=== PATIENT | male | born 1985 | race Caucasian/White ===

== ENCOUNTER 2016-09-22 13:39 | Observation (INO) | payer OTHER ==
[~2016-09-22] VITALS: Ht 175.3 cm; Wt 99.8 kg
--- NOTE | 2016-09-22 13:57 | NUR ---
PT STATES THAT HE WAS SEEN AT [place] THE PAST 2 DAYS, WAS DIAGNOSED WITH KIDNEY STONES LARGEST BEING 7.5 MM STATES THAT THEY DID NOT HAVE HIM SEEING A UROLOGIST SO HE SIGNED OUT. PT COMES IN WITH L SIDE FLANK PAIN 05/31
--- NOTE | 2016-09-22 14:19 | ED GI/GU/ABDOMINAL COMPLAINT ---
History of Present Illness General Chief Complaint: Abdominal Pain/Flank Pain Stated Complaint: L FLANK PAIN HX OF KIDNEY STONES Source: patient Exam Limitations: no limitations Vital Signs & Intake/Output Vital Signs & Intake/Output Vital Signs Date Time Temp Pulse Resp B/P Pulse O2 O2 Flow FiO2 Ox Delivery Rate 09/23 1545 97.8 68 18 120/80 97 Nasal 3.0L Cannula 09/23 0726 97.5 73 18 130/88 97 Room Air 09/23 0019 98.3 81 19 122/86 96 Room Air ED Intake and Output 09/23 0000 09/22 1200 Intake Total 1825 Output Total 300 Balance 1525 Intake, IV 1325 Intake, Oral 500 Output, Urine 300 Patient 221 lb Weight Allergies Coded Allergies: Penicillins (Severe, ANAPHYLAXIS 09/22/16) Reconcile Medications Alprazolam (Xanax) 0.25 MG TABLET 0.25 MG PO TID PRN ANXIETY Ciprofloxacin HCl (Cipro) 500 MG TABLET 500 MG PO BID ANTIBIOTIC, INFECTION Oxycodone HCl/Acetaminophen (Percocet 5-325 MG Tablet) 5 MG-325 MG TABLET 2 TAB PO Q4P PRN ABDOMINAL PAIN Triage Note: PT STATES THAT HE WAS SEEN AT [place] THE PAST 2 DAYS, WAS DIAGNOSED WITH KIDNEY STONES LARGEST BEING 7.5 MM STATES THAT THEY DID NOT HAVE HIM SEEING A UROLOGIST SO HE SIGNED OUT. PT COMES IN WITH L SIDE FLANK PAIN 05/31 Triage Nurses Notes Reviewed? yes HPI: This patient is a 31-year-old male who presented to the emergency department today for evaluation of left flank pain radiating to his left groin. The patient reported that his symptoms began on Tuesday. He reported that he went to [facility] that day where he was diagnosed with 3 left-sided kidney stones , largest 7.5 mm. The patient reported that he was discharged with hydromorphone. This medication did not relieve his symptoms. He reported that he went back to the emergency department and was admitted to the hospital. However, he reported that he was therefore almost 20 hours, did not see a urologist, and did not receive any information about what was going to happen. He was unsatisfied with his care, so he discharged himself. The patient reported that today he got a call saying that he was scheduled for a procedure, lithotripsy. He reported that he was never told about this procedure. The patient came here for further care. He reported that he is having 10 out of 10 pain in his left flank which radiates to his left groin. He reported that yesterday he was having some urinary bleeding, but not currently. He reported burning with urination. No urinary urgency or frequency. The patient reported some nausea with vomiting, many times, yesterday. The patient denied any fevers , chills, abdominal pain, chest pain, difficulty breathing, or any other associated symptoms. (MASHA POLLARD PA-C) Past History Travel History Traveled to [place] past 21 day No Medical History Any Pertinent Medical History? see below for history Neurological: NONE EENT: NONE Cardiovascular: NONE Respiratory: NONE Gastrointestinal: NONE Hepatic: NONE Renal: nephrolithiasis Musculoskeletal: NONE Psychiatric: NONE Endocrine: NONE Blood Disorders: NONE Cancer(s): NONE SWITCHBOARD AND CONTROL ROOM OPERATOR/Reproductive: NONE Surgical History Surgical History: non-contributory Psychosocial History What is your primary language Yakut Tobacco Use: Never used ETOH Use: denies use Illicit Drug Use: denies illicit drug use Family History Hx Contributory? No (MASHA POLLARD PA-C) Review of Systems Review of Systems Constitutional: Reports: no symptoms. EENTM: Reports: no symptoms. Respiratory: Reports: no symptoms. Cardiovascular: Reports: no symptoms. GI: Reports: see HPI. Genitourinary: Reports: see HPI. Musculoskeletal: Reports: no symptoms. Skin: Reports: no symptoms. Neurological/Psychological: Reports: no symptoms. All Other Systems: Reviewed and Negative (MASHA POLLARD PA-C) Physical Exam Physical Exam Gastrointestinal: normal bowel sounds, soft, non-tender, no organomegaly, NO REBOUND OR GUARDING. nO PERITONEAL SIGNS. nONDISTENDED Comments: Well-developed well-nourished person in no acute distress HEENT: Normal EENT exam, head normocephalic, moist mucous membranes Neck: Supple. No lymphadenopathy Back: Normal gait. Normal inspection with no bony or muscular deformities. No midline tenderness. No right-sided CVA tenderness. Positive left-sided CVA tenderness Cardiovascular: Regular rate and rhythm with no murmurs, rubs, or gallops Respiratory: Chest nontender. No respiratory distress. Breath sounds clear to auscultation bilaterally Extremity: Normal and equal pulses. Neuro: Alert oriented x3, cranial nerves II through XII grossly intact. Skin: No appreciable rash on exposed skin, skin is warm and dry. Psych: Mood and affect is normal Core Measures ACS in differential dx? No Severe Sepsis Present: No Septic Shock Present: No (LATRICE PAULINO,MASHA) Progress Differential Diagnosis: AMI, appendicitis, biliary colic, bowel obstruction, colon cancer, cholecystitis, diverticulitis, epididymitis, gastritis, hepatitis, ischemic bowel, inflamm bowel dis, pancreatitis, prostatitis, PUD/GERD, perforated viscous, pyelonephritis, STD, testicular torsion, ureterolithiasis, urinary retention, urethritis, UTI/pyelo Plan of Care: Orders Procedure Date/time Status Regular Diet 09/23 D Complete Discharge Patient 09/23 UNK Active VTE Mechanical Prophylaxis 09/23 UNK Active Current Medications Sig/Chaka Start time Last Medication Dose Stop Time Status Admin Al Hydroxide/Mg 30 ML Q6P PRN 09/22 1814 CAN Hydroxide (Maalox Plus) Diagnostic Imaging: Viewed by Me: CT Scan. Discussed w/RAD: CT Scan. Radiology Impression: PATIENT: PARIS WILCOX PRESENT AGE: 31 PATIENT ACCOUNT NO: [id number] : 84 LOCATION: [facility] ORDERING PHYSICIAN: MASHA POLLARD PA-C SERVICE DATE: 09/22/16 EXAM TYPE: CAT - CT ABD & PELVIS W/O IV CONTRAS EXAMINATION: CT ABDOMEN AND PELVIS WITHOUT CONTRAST CLINICAL INFORMATION: Kidney stones. Left flank pain. COMPARISON: No relevant prior imaging available. TECHNIQUE: Multidetector volumetric imaging was performed from the superior aspect of the liver through the pubic symphysis. Sagittal and coronal reformatted images were obtained on the technologist's workstation. DLP: 583.64 mGy-cm. FINDINGS: LUNG BASES: Lung bases are clear. There is no pleural or pericardial effusion. LIVER, GALLBLADDER, AND BILIARY TREE: The liver is normal in size, shape, and attenuation. No focal hepatic lesion or biliary ductal dilatation is present. The gallbladder is unremarkable with no evidence of radiopaque gallstones, gallbladder wall thickening, or obvious pericholecystic inflammatory changes. PANCREAS: Unremarkable. SPLEEN: Unremarkable. ADRENAL GLANDS: Unremarkable. KIDNEYS AND URETERS: There is a 7 mm obstructing calculus located at the left ureteropelvic junction and there is corresponding left hydronephrosis. There are additional 6 mm and 3 mm nonobstructive calculi within the calyces of the left kidney. The remainder of the visualized left ureter is normal. The right kidney kidney and ureter are normal. BLADDER: Unremarkable. GASTROINTESTINAL TRACT: The stomach and small bowel are normal. The colon and appendix are normal. ABDOMINAL WALL: There is a tiny fat-containing umbilical hernia. Abdominal wall is otherwise unremarkable. LYMPH NODES: There are no pathologically enlarged mesenteric or retroperitoneal lymph nodes. VASCULAR: The unenhanced abdominal aorta and inferior vena cava are normal. PELVIC VISCERA: Unremarkable. OSSEOUS STRUCTURES: Unremarkable. IMPRESSION: There is a 7 mm obstructing calculus located at the left ureteropelvic junction and 2 additional nonobstructing calculi within the calyces of left kidney. The right kidney and ureter are normal. DICTATED BY: MALCOLM QUINN MD DATE/TIME DICTATED:09/22/161522 DIPLOMATIC INTERPRETER/TRANSLATOR: HELEN DATE/TIME TRANSCRIBED:09/22/161522 CONFIDENTIAL, DO NOT COPY WITHOUT APPROPRIATE AUTHORIZATION. <Electronically signed in Other Vendor System> SIGNED BY: MALCOLM QUINN MD 09/22/16 1548 Initial ED EKG: none Comments: 09/22/2016 4:22:36 PM: I discussed this patient with on-call urologist, Dr. Rios. He reported that he will be in to the hospital to evaluate this patient [id number] in the next hour. The patient reported that his pain is, "better. " He is denying any current nausea. 09/22/2016 5:36:58 PM: Dr. Rios is currently at the patient's bedside for face- to-face evaluation. (LATRICE PAULINO,MASHA) Departure Departure Disposition: STILL A PATIENT Condition: Stable Clinical Impression Primary Impression: Ureterolithiasis Referrals: PATIENT HAS NO PRIMARY CARE DR (PCP/Family) Departure Forms: Customer Survey General Discharge Information Prescriptions: Current Visit Scripts Ciprofloxacin HCl (Cipro) 500 MG PO BID #15 Oxycodone HCl/Acetaminophen (Percocet 5-325 MG Tablet) 2 TAB PO Q4P PRN ABDOMINAL PAIN #30 Alprazolam (Xanax) 0.25 MG PO TID PRN ANXIETY #30 Observation Note Spoke With: PUJA RIOS MD Physician Advisor Notified: KRISTIAN VARGAS DO Place Patient In: Non-ED OBS Care Area Rationale for Observation: My rational for observation is as follows [this patient is a 31-year-old male who presented to the emergency department today for evaluation of worsening pain after diagnosis of left sided ureterolithiasis. This patient will be 23 hour observation for stent placement in the morning. He will receive IV pain management, IV antiemetics, he will be NPO after midnight. Premature discharge could prove medically harmful.]. (LATRICE PAULINO,MASHA) PA/HEALTH PROMOTION OFFICER Co-Sign Statement Statement: ED Attending supervision documentation- [] I saw and evaluated the patient. I have also reviewed all the pertinent lab results and diagnostic results. I agree with the findings and the plan of care as documented in the PA's/HEALTH PROMOTION OFFICER's documentation. [X] I have reviewed the ED Record and agree with the PA's/HEALTH PROMOTION OFFICER's documentation. [] Additions or exceptions (if any) to the PAs/HEALTH PROMOTION OFFICER's note and plan are summarized below: [] (MERARY JACOME,ANDERSON)
[2016-09-22] MEDS ORDERED: HYDROMORPHONE HC2 M1 PO (14:23)
--- NOTE | 2016-09-22 14:27 | NUR ---
PT TO ROOM 18 IN W/C, SEEN BY PA, BLOOD SENT (MARIO/SHANAE/JEROMY), PT UNABLE TO VOID AT THIS TIME AND HAS URINE CUP. IV EST AND PT MEDICATED PER EMAR.
[2016-09-22 14:35] LABS: ABSOLUTE BASOPHIL COUNT 0.1 /CUMM (0.0-0.2); ABSOLUTE EOSINOPHIL COUNT 0.2 /CUMM (0.0-0.7); ABSOLUTE GRANULOCYTE CT 9.6 /CUMM (1.4-6.5); ABSOLUTE LYMPH COUNT 1.9 /CUMM (1.2-3.4); BASOPHIL % 0.8 % (0.0-2.0); EOSINOPHIL % 1.5 % (0-5); HEMATOCRIT 43.7 % (42-52); MEAN CORPUSCULAR HGB 29.2 PG (27.0-31.0); MEAN CORPUSCULAR HGB CONC 34.5 G/DL (33.0-37.0); MEAN CORPUSCULAR VOLUME 84.7 FL (80.0-94.0); MEAN PLATELET VOLUME 8.9 FL (7.4-10.4); PLATELET COUNT 233 /CUMM (130-400); RBC DISTRIBUTION WIDTH 13.1 % (11.5-14.5); RED BLOOD CELL CT 5.17 /CUMM (4.70-6.10); WHITE BLOOD CELL COUNT 12.8 /CUMM (4.8-10.8)
--- NOTE | 2016-09-22 14:46 | NUR ---
ANKIT POLLARD AT BEDSIDE FOR EVAL
--- NOTE | 2016-09-22 15:02 | NUR ---
MEDICATED WITH MORPHINE, PT REPORTS TORADOL WORKED BUT "PAIN IS STILL THERE," NOW 12/29 FROM 05/31, AWAITING CT SCAN.
--- NOTE | 2016-09-22 15:15 | NUR ---
AMBULATORY TO/FROM CT
--- NOTE | 2016-09-22 15:47 | NUR ---
URINE SPECIMEN OBTAINED AND TRIO SENT TO LAB
--- NOTE | 2016-09-22 15:48 | CT SCAN REPORT ---
EXAMINATION: CT ABDOMEN AND PELVIS WITHOUT CONTRAST CLINICAL INFORMATION: Kidney stones. Left flank pain. COMPARISON: No relevant prior imaging available. TECHNIQUE: Multidetector volumetric imaging was performed from the superior aspect of the liver through the pubic symphysis. Sagittal and coronal reformatted images were obtained on the technologist's workstation. DLP: 583.64 mGy-cm. FINDINGS: LUNG BASES: Lung bases are clear. There is no pleural or pericardial effusion. LIVER, GALLBLADDER, AND BILIARY TREE: The liver is normal in size, shape, and attenuation. No focal hepatic lesion or biliary ductal dilatation is present. The gallbladder is unremarkable with no evidence of radiopaque gallstones, gallbladder wall thickening, or obvious pericholecystic inflammatory changes. PANCREAS: Unremarkable. SPLEEN: Unremarkable. ADRENAL GLANDS: Unremarkable. KIDNEYS AND URETERS: There is a 7 mm obstructing calculus located at the left ureteropelvic junction and there is corresponding left hydronephrosis. There are additional 6 mm and 3 mm nonobstructive calculi within the calyces of the left kidney. The remainder of the visualized left ureter is normal. The right kidney kidney and ureter are normal. BLADDER: Unremarkable. GASTROINTESTINAL TRACT: The stomach and small bowel are normal. The colon and appendix are normal. ABDOMINAL WALL: There is a tiny fat-containing umbilical hernia. Abdominal wall is otherwise unremarkable. LYMPH NODES: There are no pathologically enlarged mesenteric or retroperitoneal lymph nodes. VASCULAR: The unenhanced abdominal aorta and inferior vena cava are normal. PELVIC VISCERA: Unremarkable. OSSEOUS STRUCTURES: Unremarkable. IMPRESSION: There is a 7 mm obstructing calculus located at the left ureteropelvic junction and 2 additional nonobstructing calculi within the calyces of left kidney. The right kidney and ureter are normal.
--- NOTE | 2016-09-22 17:27 | NUR ---
MD RODGERS AT [facility] TO EDDIE PT
--- NOTE | 2016-09-22 18:00 | Cons- Urology ---
General Information and HPI Consulting Request Date of Consult: 09/22/16 Requested By: md rodríguez, chace:ER Reason for Consult: left hydro: acute renal failure. sepsis Source of Information: patient Exam Limitations: no limitations History of Present Illness: 31 yr old with hx stones. recently, seen in [place] with severe pain then discharged. Returns to [place] ER with pain, n/v. fever. Allergies/Medications Allergies: Coded Allergies: Penicillins (Severe, ANAPHYLAXIS 09/22/16) Home Med List: Hydromorphone HCl 2 MG TABLET 1 TAB PO Q4-6 PRN PRN PAIN (Reported) Current Medications: Current Medications Sig/Chaka Start time Last Medication Dose Route Stop Time Status Admin Ketorolac 30 MG ONCE ONE 09/22 1415 DC 09/22 Tromethamine IV 09/22 1416 1420 Ketorolac 0 .STK-MED ONE 09/22 1410 DC Tromethamine .ROUTE Morphine Sulfate 2 MG ONCE ONE 09/22 1500 DC / IV 09/22 1501 1502 Morphine Sulfate 0 .STK-MED ONE 09/22 1458 DC .ROUTE Ondansetron HCl 0 .STK-MED ONE 09/22 1425 DC .ROUTE Ondansetron HCl 4 MG ONCE ONE 09/22 1415 DC / IV 02 1416 1425 Sodium Chloride 1,000 ML BOLUS ONE 09/22 1415 DC 02/ IV 02/ 1514 1420 Past History Medical History Neurological: NONE EENT: NONE Cardiovascular: NONE Respiratory: NONE Gastrointestinal: NONE Hepatic: NONE Renal: nephrolithiasis Musculoskeletal: NONE Psychiatric: NONE Endocrine: NONE Blood Disorders: NONE Cancer(s): NONE RISK SPECIALIST/Reproductive: NONE Surgical History Pertinent Surgical History: non-contributory Psychosocial History ETOH Use: denies use Illicit Drug Use: denies illicit drug use 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 EENTM: Denies: no symptoms. Cardiovascular: Denies: no symptoms. Respiratory: Denies: no symptoms. GI: Reports: abdominal pain, bloating. Genitourinary: Denies: no symptoms. Musculoskeletal: Denies: no symptoms. Exam & Diagnostic Data Vital Signs and I&O Vital Signs Date Time Temp Pulse Resp B/P Pulse O2 O2 Flow FiO2 Ox Delivery Rate 09/22 1606 96.4 90 18 127/72 93 Room Air 09/22 1354 98.2 98 18 161/100 98 Room Air Intake & Output 09/22 1600 09/22 0800 09/22 0000 09/21 1600 09/21 0800 09/21 0000 Intake Total 1100 Output Total Balance 1100 Intake, IV 1100 Patient 221 lb Weight Physical Exam General Appearance: well developed/nourished, alert, awake, anxious, mild distress Head: atraumatic Eyes: Bilateral: normal appearance. Neck: normal inspection Respiratory: normal breath sounds Cardiovascular: regular rate/rhythm Gastrointestinal: normal bowel sounds, soft Back: CVA tenderness (L) Extremities: normal inspection Last 24 Hours of Labs: Laboratory Tests 09/22 09/22 1544 1425 Chemistry Sodium (137 - 145 mmol/L) 140 Potassium (3.5 - 5.1 mmol/L) 3.9 Chloride (98 - 107 mmol/L) 103 Carbon Dioxide (22 - 30 mmol/L) 25 Anion Gap (5 - 16) 12 BUN (9 - 20 mg/dL) 15 Creatinine (0.7 - 1.2 mg/dL) 1.4 H Estimated GFR (>60 ml/min) 59 L BUN/Creatinine Ratio (7 - 25 %) 10.7 Glucose (65 - 99 mg/dL) 93 Calcium (8.4 - 10.2 mg/dL) 9.4 Total Bilirubin (0.2 - 1.3 mg/dL) 1.7 H AST (17 - 59 U/L) 27 ALT (21 - 72 U/L) 48 Alkaline Phosphatase (< 127 U/L) 73 Total Protein (6.3 - 8.2 g/dL) 7.4 Albumin (3.5 - 5.0 g/dL) 4.4 Globulin (1.9 - 4.2 gm/dL) 3.0 Albumin/Globulin Ratio (1.1 - 2.2 %) 1.5 Hematology CBC w Diff NO MAN DIFF REQ WBC (4.8 - 10.8 /CUMM) 12.8 H RBC (4.70 - 6.10 /CUMM) 5.17 Hgb (14.0 - 18.0 G/DL) 15.1 Hct (42 - 52 %) 43.7 MCV (80.0 - 94.0 FL) 84.7 MCH (27.0 - 31.0 PG) 29.2 RDW (11.5 - 14.5 %) 13.1 Plt Count (130 - 400 /CUMM) 233 MPV (7.4 - 10.4 FL) 8.9 Gran % (42.2 - 75.2 %) 75.0 Lymphocytes % (20.5 - 51.1 %) 14.7 L Monocytes % (1.7 - 9.3 %) 8.0 Eosinophils % (0 - 5 %) 1.5 Basophils % (0.0 - 2.0 %) 0.8 Absolute Granulocytes (1.4 - 6.5 /CUMM) 9.6 H Absolute Lymphocytes (1.2 - 3.4 /CUMM) 1.9 Absolute Monocytes (0.10 - 0.60 /CUMM) 1.0 H Absolute Eosinophils (0.0 - 0.7 /CUMM) 0.2 Absolute Basophils (0.0 - 0.2 /CUMM) 0.1 PUBS MCHC (33.0 - 37.0 G/DL) 34.5 Urines Urinalysis LIGHT H Urine Color (YEL,AMB,STR) STRAW Urine Clarity (CLEAR) CLEAR Urine pH (5.0 - 8.0) 6.0 Ur Specific [place] (1.001 - 1.035) <= 1.005 Urine Protein (NEG,<30 MG/DL) NEG Urine Ketones (NEG) NEG Urine Nitrite (NEG) NEG Urine Bilirubin (NEG) NEG Urine Urobilinogen (0.1 - 1.0 EU/dl) 0.2 Ur Leukocyte Esterase (NEG) NEG Ur Microscopic SEDIMENT EXAMINED Urine RBC (0 - 5 /HPF) 3-5 Urine WBC (0 - 2 /HPF) RARE Ur Epithelial Cells (NONE,FEW) FEW Urine Mucus (FEW,NONE) RARE Urine Hemoglobin (NEG) LARGE H Urine Glucose (N MG/DL) NEG Imaging Results: PATIENT: PARIS WILCOX PRESENT AGE: 31 PATIENT ACCOUNT NO: [id number] : 84 LOCATION: [facility] ORDERING PHYSICIAN: MASHA POLLARD PA-C SERVICE DATE: 09/22/168888 EXAM TYPE: CAT - CT ABD & PELVIS W/O IV CONTRAS EXAMINATION: CT ABDOMEN AND PELVIS WITHOUT CONTRAST CLINICAL INFORMATION: Kidney stones. Left flank pain. COMPARISON: No relevant prior imaging available. TECHNIQUE: Multidetector volumetric imaging was performed from the superior aspect of the liver through the pubic symphysis. Sagittal and coronal reformatted images were obtained on the technologist's workstation. DLP: 583.64 mGy-cm. FINDINGS: LUNG BASES: Lung bases are clear. There is no pleural or pericardial effusion. LIVER, GALLBLADDER, AND BILIARY TREE: The liver is normal in size, shape, and attenuation. No focal hepatic lesion or biliary ductal dilatation is present. The gallbladder is unremarkable with no evidence of radiopaque gallstones, gallbladder wall thickening, or obvious pericholecystic inflammatory changes. PANCREAS: Unremarkable. SPLEEN: Unremarkable. ADRENAL GLANDS: Unremarkable. KIDNEYS AND URETERS: There is a 7 mm obstructing calculus located at the left ureteropelvic junction and there is corresponding left hydronephrosis. There are additional 6 mm and 3 mm nonobstructive calculi within the calyces of the left kidney. The remainder of the visualized left ureter is normal. The right kidney kidney and ureter are normal. BLADDER: Unremarkable. GASTROINTESTINAL TRACT: The stomach and small bowel are normal. The colon and appendix are normal. ABDOMINAL WALL: There is a tiny fat-containing umbilical hernia. Abdominal wall is otherwise unremarkable. LYMPH NODES: There are no pathologically enlarged mesenteric or retroperitoneal lymph nodes. VASCULAR: The unenhanced abdominal aorta and inferior vena cava are normal. PELVIC VISCERA: Unremarkable. OSSEOUS STRUCTURES: Unremarkable. IMPRESSION: There is a 7 mm obstructing calculus located at the left ureteropelvic junction and 2 additional nonobstructing calculi within the calyces of left kidney. The right kidney and ureter are normal. Assessment/Plan Assessment/Plan left hydro due to obstructing ureter stone./requires stent and then ESWL. Copies To: PUJA RODGERS MD Consult Acknowledgment - Thank you for your consult request. Attending MD Review Statement Attending Statement Attending MD Statement: examined this patient Attending Assessment/Plan: left hydro due to stone; requires stent, then subsequent ESWL.
--- NOTE | 2016-09-22 18:55 | NUR ---
BED ASSIGNMENT 215-02
--- NOTE | 2016-09-22 18:58 | NUR ---
PT EATING DINNER. AWARE HE IS NPO AT MIDNIGHT.
--- NOTE | 2016-09-22 19:05 | NUR ---
PT EATING DINNER, DENIES NEED FOR PRN MEDS AT THIS TIME, NO COMPLAINTS. AWARE OF PLAN OF CARE.
--- NOTE | 2016-09-22 19:29 | NUR ---
REPORT CALLED TO NAEEM ON 2NB
--- NOTE | 2016-09-22 19:30 | NUR ---
TRANSPORT BOOKED. PT AWARE OF PENDING TRANSFER.
[2016-09-22 20:04] VITALS: BP 138/78
--- NOTE | 2016-09-22 22:29 | NUR ---
PATIENT ARRIVED TO FLOOR AT 1999. VSS. PATIENT RESTING COMFORTABLY IN BED READING A BOOK. PATIENT STATES PAIN IS 3/10. UMBRELLA FRAME MAKER ORDERED BY . CALLED TO [facility] ORDER OF UMBRELLA FRAME MAKER PUMP. PER , UMBRELLA FRAME MAKER PUMP IS NOT NEEDED DUE TO PAITIENT BEING COMFORTABLE. PO PERCOCERT PRN ORDERED FOR PAIN. WILL CONTINUE TO MONITOR PATIENT FOR PAIN. CALL METZGER WITHIN REACH.
[2016-09-23 00:19] VITALS: BP 122/86
[2016-09-23 07:26] VITALS: BP 130/88
[2016-09-23] MEDS ORDERED: PERCOCET 5-3251 EACH PO (14:12)
[2016-09-23] MEDS ORDERED: XANAX0.25 M1 PO (14:12)
[2016-09-23] MEDS ORDERED: CIPRO500 M1 PO (14:12)
--- NOTE | 2016-09-23 14:17 | Operative Report ---
Operative/Inv Procedure Report Surgery Date: 09/23/16 Name of Procedure: cysto: left retrograde pyelogram, left stent insertion, fluoroscopy, LASER standby Pre-Operative Diagnosis: left obstructing ureter stone with hydro. Post-Operative Diagnosis: same Estimated Blood Loss: dariela Surgeon/Mine Engineer: PUJA RODGERS MD Anesthesia: laryngeal mask airway Complications: none Operative/Procedure Note Note: The patient was taken to the operating room placed OR table in supine position. Timeout was performed, with the patient awake, in order to confirm anesthesia, and other pertinent perioperative information. After adequate anesthesia and antibiotics the patient was then placed lithotomy stirrups, draped and prepped in the usual surgical fashion. A 22 [place] Helenian cystoscope sheath with 30 angle lens was inserted into the urethra, and subsequently advanced into the bladder without difficulty. Upon thorough and systematic surveillance, the bladder was noted to be free of tumor free of stone. Both ureteral orifices were in their orthotopic position with clear eflux from the both sides. The left orifice was intubated with an open-ended ureteral access catheter. Retrograde pyelogram was gently performed in order to confirm hydronephrosis, and an 8mm left proximal ureter filling defect, Consistent with stone, was visualized fluoroscopically. The open-ended stent was then removed. The left orifice was then intubated with a 0.035 Glidewire, which was advanced into the left ureter and renal pelvis with out difficulty, bypassing the ureter stone. Over this Glidewire a 6 x 22 Bard onlay stent was rail-roaded into the left ureter without difficulty. With the proximal coil in the left renal pelvis, and the distal coil in the bladder, the Glidewire was removed, and the stent remained in proper place. Subsequently, The right orifice was intubated with a 0.035 Glidewire, which was advanced into the right ureter and renal pelvis with out difficulty. Over this Glidewire a 6 x 20 Bard onlay stent was rail-roaded into the right ureter without difficulty. With the proximal coil in the right renal pelvis, and the distal coil in the bladder, the Glidewire was removed, and the stent remained in proper place. The bladder was then drained, via the cystoscope, and the cystoscope then removed without difficulty. All sponge needle and instrument count correct at the end of the case. The patient tolerated the procedure well was taken to recovery room in satisfactory condition. He is to follow-up in a week's time for a left ureter ESWL, and cystoscopy stent removal. Findings: 8mm left prox. ureter stone. Discharge Disposition: PACU CC: PUJA RODGERS MD
--- NOTE | 2016-09-23 15:07 | RADIOLOGY REPORT ---
EXAMINATION: XR ABDOMEN CLINICAL INDICATION: Ureteroscopy with left stent placement. COMPARISON: CT of the abdomen and pelvis 09/22/2016. TECHNIQUE: Fluoroscopic spot films (8) of the left abdomen and pelvis are obtained during ureteroscopy and stent placement on the left side. FINDINGS: Contrast is injected into the left ureter. Portions are visualized and are mostly nondilated. There is left pelvocaliectasis. The left ureteral calculus identified on the CT scan is not clearly visualized. A wire was advanced followed by a stent. IMPRESSION: Fluoroscopy and spot films performed during left ureteroscopy and stent placement.
[2016-09-23 15:45] VITALS: BP 120/80
== END 2016-09-23 18:45 ==
LOC: ENRESERVDT → ENRESERVTM → ERH 13:39 → ENPENDDIS 17:53 → ERHI 17:53 → 2NB 17:53
PROVIDERS: Physician Assistant; ADMIT Urology
DX: N13.2 Hydronephrosis with renal and ureteral calculous obstruction (principal)
CPT/HCPCS: 6040; 74000; 74176; 81001; 87086; 96361; 96374; 96375; C2617; G0378; J1885; J2175; J2405; J7042

== ENCOUNTER → 2016-09-28 | Day surgery (SDC) | payer OTHER ==
[~2016-09-28] MED LIST: CIPRO500 M1 PO; HYDROMORPHONE HC2 M1 PO; PERCOCET 5-3251 EACH PO; XANAX0.25 M1 PO
--- NOTE | 2016-09-28 18:41 | Operative Report ---
Operative/Inv Procedure Report Surgery Date: 09/28/16 Name of Procedure: LEFT URETER ESWL. CYSTO-STENT REMOVAL. FLUOROSCOPY Pre-Operative Diagnosis: LEFT URETER STONE WITH STENT Post-Operative Diagnosis: SAME Estimated Blood Loss: scant Surgeon/Transit Planning Director: PUJA RODGERS MD Anesthesia: moderate sedation Drains: NONE Specimens: LEFT STENT Complications: NONE Operative/Procedure Note Note: The patient was taken to the operating room and placed on the ESWL table in supine position. With the patient awake, timeout was performed in order to confirm the patient's identity, laterality, procedure, anesthesia, and other pertinent perioperative information. The patient's left flank was positioned over the ESWL table cut-out, overlying the dome of the shockwave generator. C- arm fluroscopy, as well as renal US was used to locate the stone, and evaluate the left kidney. The stone was visible on fluroloscopy at the level of the proximal ureter alongside the stent. Renal US confimred resolution of hydronephrosis with and additional stone seen in the kidney. The left ureter stone was approximate 9 mm in size, and it's position was optimized with fluoroscopy at AP and Oblique views. After adequate anesthesia and antibiotics, the left ureter E.S.W.L. was initiated at low power levels x200 shocks. After noting the patient's tolerance to the shockwaves, the shockwave power level was quickly maximumized. Toward the end of the procedure, the composition of the stone had changed significantly indicating the pulverization of the ureter stone. A total of 3000 shockwaves were delivered to the stone in order to achieve adequate lithotrypsy. The patient was then frog legged, draped and prepped in the usual surgical fashion. A 22 Wolof cystoscope sheath with a 30 angle lens was inserted into the urethra and into the bladder without difficulty. Upon entering the bladder the bladder was noted to be free of tumor free of stone both orifices in orthotopic position. The left orifice had a stent protruding from it, which was grasped with an alligator clamp. The cystoscope, along with entire left stent was removed without difficulty. The patient tolerated both procedures well, was awakened, and taken to recovery in satisfactory condition via stretcher. The pt. will eventually be dischared to home with pain meds, diet orders, and intructions to catch fragments with straining the urine. The patient is to have follow-up renal ultrasound and KUB in 2 weeks, prior to follow-up visit in my office. Findings: ADDITIONAL LEFT RENAL STONE 6MM-TO HAVE ESWL IN 4-8 WEEKS. Discharge Disposition: PACU CC: ANA MARIA JACOME,PUJA
== END ==
LOC: STS 03:17
DX: N20.1 Calculus of ureter (principal); N20.0 Calculus of kidney; Z87.442 Personal history of urinary calculi
CPT/HCPCS: J0696; J2250